=== PATIENT | female | born 1960 | race Caucasian/White ===

== ENCOUNTER → 2021-11-06 | Day surgery (SDC) | payer OTHER ==
[~2021-11-06] VITALS: Ht 162.6 cm; Wt 77.2 kg
[~2021-11-06] MED LIST: DAILY VALUE1 EACH PO; LIPITOR 10MG TA10 MG PO; OMEPRAZOLE40 MG PO
[2021-11-06 08:21] LABS: HCT 44.1 % (37.0-47.0); HGB 14.7 g/dl (12.5-16.0); MCH 29.4 pg (25.0-31.0); MCHC 33.3 g/dL (32.0-36.0); MCV 88.2 fL (78.0-100.0); MPV 10.9 fL (6.0-9.5); WBC 7.5 K/uL (4.0-10.5)
[2021-11-06 08:32] LABS: ALBUMIN 3.7 g/dL (3.4-5.0); BILIRUBIN - TOTAL 0.5 mg/dL (0.2-1.0); BUN/CREAT RATIO (CALC) 20.5 RATIO; CREATININE 0.73 mg/dL (0.51-0.95); GLOBULIN (CALCULATION) 2.7 g/dL; POTASSIUM 3.9 mmol/L (3.5-5.1); TOTAL PROTEIN 6.4 g/dL (6.4-8.2)
== END | disposition home or self-care (01) ==
LOC: FAS 07:35
PROVIDERS: Surgery
DX: K21.00 Gastro-esophageal reflux disease with esophagitis, without bleeding (principal); K22.2 Esophageal obstruction; K29.70 Gastritis, unspecified, without bleeding; K29.80 Duodenitis without bleeding; K31.9 Disease of stomach and duodenum, unspecified; K44.9 Diaphragmatic hernia without obstruction or gangrene
CPT/HCPCS: 36415; 80053; C1726; J2704; J7120

== ENCOUNTER → 2021-11-13 | Day surgery (SDC) | payer OTHER ==
[~2021-11-13] VITALS: Ht 162.6 cm; Wt 77.2 kg
[~2021-11-13] MED LIST changes: +NORCO 5-325 TA1 EACH PO
== END | disposition home or self-care (01) ==
LOC: FAS 08:30
DX: D17.1 Benign lipomatous neoplasm of skin and subcutaneous tissue of trunk (principal); R13.10 Dysphagia, unspecified
CPT/HCPCS: J2250; J2405; J3010; J7120